=== PATIENT | female | born 1940 | race Hispanic/Latino ===

== ENCOUNTER 2020-11-29 09:24 | Observation (INO) | payer MEDICARE, OTHER ==
[~2020-11-29] VITALS: Ht 157.5 cm; Wt 61.2 kg
[2020-11-29] VITALS (7 sets, daily range): BP systolic 148–185; BP diastolic 60–82
[2020-11-29 09:56] LABS: BASOPHILS % (AUTO) 0.7 % (0.0-5.0); EOSINOPHILS % (AUTO) 1.1 % (0.0-8.0); HEMATOCRIT 37.7 % (36-48); LYMPHOCYTES % (AUTO) 7.9 % (21.0-51.0); MEAN CORPUSCULAR HEMOGLOBIN 28.6 pg (27.0-33.0); MEAN CORPUSCULAR HGB CONC 31.6 g/dL (32.0-36.0); MEAN CORPUSCULAR VOLUME 90.6 fL (79-99); MONOCYTES % (AUTO) 2.8 % (3.0-13.0); NEUTROPHILS % (AUTO) 83.3 % (40.0-77.0); NUCLEATED RED BLOOD CELLS 0.5 % (0.0-0.19); PLATELET COUNT (AUTO) 401 K/uL (130-400); RED BLOOD CELL COUNT(AUTO) 4.16 MIL/uL (4.00-5.50); RED CELL DISTRIBUTION WIDTH 17.8 % (11.0-15.5); WHITE BLOOD COUNT (AUTO) 25.6 K/uL (4.8-10.8)
[2020-11-29 10:00] LABS: CREATININE 1.6 mg/dL (0.5-1.5)
[2020-11-29 10:02] LABS: INR 1.05 (0.85-1.15); PROTHROMBIN TIME 11.4 SEC (9.6-11.6)
[2020-11-29 10:03] LABS: PARTIAL THROMBOPLASTIN TIME 31.1 SEC (26.3-35.5)
[2020-11-29 10:06] LABS: ALBUMIN 3.6 g/dL (3.5-5.0); BILIRUBIN,TOTAL 0.7 mg/dL (0.2-1.0)
[2020-11-29 10:11] LABS: B-TYPE NATRIURETIC PEPTIDE 113 pg/mL (0-100)
[2020-11-29 10:45] LABS: APPEARANCE,URINE Clear (CLEAR); BILIRUBIN,URINE Negative (NEGATIVE); COLOR,URINE Yellow (YELLOW); GLUCOSE, URINE (UA) Negative (NEGATIVE); KETONES,URINE Negative (NEGATIVE); LEUKOCYTE ESTERASE ,URINE Negative (NEGATIVE); NITRATE,URINE Negative (NEGATIVE); OCCULT BLOOD,URINE Negative (NEGATIVE); PROTEIN,URINE POS 2+ mg/dL (NEGATIVE); UROBILINOGEN,URINE 0.2 mg/dL (0.2-1.0)
[2020-11-29 10:56] LABS: AMYLASE 44 U/L (25-115); LIPASE 65 U/L (114-286)
[2020-11-29] MEDS ORDERED: 0.9%NACL 1000ML 1,000 ML IV SCH (11:00)
[2020-11-29] MEDS ORDERED: ONDANSETRON 4MG INJ IVP SCH (11:00)
[2020-11-29] MEDS ORDERED: MORPHINE 4 MG SYG IVP SCH (11:00)
[2020-11-29 11:20] LABS: BACTERIA,URINE Few /HPF (None Seen)
[2020-11-29 11:21] LABS: RBC,URINE 0-1 /HPF (0-1); WBC,URINE 0-1 /HPF (0-1)
[2020-11-29] MEDS ORDERED: ASPIRIN 81MG CHEW TAB PO SCH (12:30)
[2020-11-29] MEDS ORDERED: NITROGLYCERIN 1GM OINT 1 INCH/1GM TD SCH (12:30)
[2020-11-29] MEDS ORDERED: ENOXAPARIN SODIUM 60 MG/0.6 ML SQ SCH ×2 (12:30→13:30)
[2020-11-29] MEDS: CLOPIDOGREL 75MG TAB PO SCH (13:04)
[2020-11-29] MEDS ORDERED: ASPIRIN 81 MG EC TAB PO SCH (13:05)
[2020-11-29] MEDS ORDERED: AMLO5TAB5 PO (13:23)
[2020-11-29] MEDS ORDERED: ONDANSETRON 4MG INJ IVP PRN (13:30)
[2020-11-29] MEDS: DEXTROSE 5 % AND 0.9 % NACL 1,000 ML IV SCH (13:30)
[2020-11-29] MEDS ORDERED: DEXTROSE 50%-WATER 50 ML DISP.SYRIN IV PRN (13:30)
[2020-11-29] MEDS ORDERED: MORPHINE 2 MG SYG IVP PRN (13:30)
[2020-11-29] MEDS ORDERED: ACETAMINOPHEN 325 MG TAB PO PRN (13:30)
[2020-11-29] MEDS ORDERED: GLUCAGON 1MG KIT 1 MG ML IM PRN (13:30)
[2020-11-29] MEDS ORDERED: ANAG1CAP3 PO (14:59)
[2020-11-29] MEDS ORDERED: LEVO112T7 PO (14:59)
[2020-11-29] MEDS ORDERED: VITA1TAB22 PO (14:59)
[2020-11-29] MEDS ORDERED: TELM80TA10 PO (14:59)
[2020-11-29] MEDS ORDERED: SUCR1ORA15 PO (14:59)
[2020-11-29] MEDS ORDERED: ALLO100T PO (14:59)
[2020-11-29] MEDS ORDERED: RALO60TA13 PO (14:59)
[2020-11-29] MEDS: INSULIN R PO SS1 SQ SCH ×2 (16:30→20:42)
[2020-11-29] MEDS ORDERED: NON-FORMULARY MEDICATION 1 EACH (Sucralfate 1 GM) PO SCH (18:00)
[2020-11-29] MEDS ORDERED: MAGNESIUM HYDROXIDE 30 ML/UDCUP PO SCH (20:00)
[2020-11-29] MEDS: ZOSYN 3.375GM+NS 50ML 50 ML IV SCH (20:41)
[2020-11-29] MEDS: Telmisartan 80 MG PO SCH (20:41)
[2020-11-29] MEDS: SUCRALFATE 1 GM TABLET PO SCH (20:41)
[2020-11-30] VITALS (7 sets, daily range): BP systolic 103–156; BP diastolic 58–87
[2020-11-30] MEDS: DEXTROSE 5 % AND 0.9 % NACL 1,000 ML IV SCH ×2 (02:50→17:19)
[2020-11-30] MEDS: LEVOTHYROXINE 112 MCG TABLET PO SCH ×2 (05:32→05:49)
[2020-11-30] MEDS: SUCRALFATE 1 GM TABLET PO SCH ×4 (05:33→20:39)
[2020-11-30] MEDS: INSULIN R PO SS1 SQ SCH ×4 (05:49→20:39)
[2020-11-30] MEDS ORDERED: VITAMIN B COMPLEX PO SCH (09:00)
[2020-11-30] MEDS: VITAMIN B COMPLEX 1 CAPSULE PO SCH (09:00)
[2020-11-30] MEDS: CLOPIDOGREL 75MG TAB PO SCH (09:00)
[2020-11-30] MEDS: ENOXAPARIN SODIUM 60 MG/0.6 ML SQ SCH (09:00)
[2020-11-30] MEDS: ANAGRELIDE HCL 1 MG PO SCH ×2 (09:00→12:00)
[2020-11-30] MEDS: ALLOPURINOL 100 MG TABLET PO SCH (09:00)
[2020-11-30] MEDS ORDERED: ANAGRELIDE HCL 1 MG PO SCH (09:00)
[2020-11-30] MEDS: ASPIRIN 81 MG EC TAB PO SCH (09:00)
[2020-11-30] MEDS: AMLODIPINE 5 MG TAB PO SCH (09:23)
[2020-11-30] MEDS: ZOSYN 3.375GM+NS 50ML 50 ML IV SCH ×2 (09:24→20:36)
[2020-11-30] MEDS ORDERED: REGADENOSON 0.4 MG/5 ML PF SYG IVP SCH (10:00)
[2020-11-30] MEDS ORDERED: RALOXIFENE HCL 60 MG TABLET PO SCH (12:00)
[2020-11-30 14:23] LABS: CHOLESTEROL 150 mg/dL (<200); HDL CHOLESTEROL 36 mg/dL (35-85); LDL DIRECT 68 mg/dL (0-99); TRIGLYCERIDES 181 mg/dL (30-200)
[2020-11-30] MEDS: Telmisartan 80 MG PO SCH (21:00)
[2020-12-01 03:33] VITALS: BP 169/74
[2020-12-01 05:15] LABS: HEMATOCRIT 32.3 % (36-48); MEAN CORPUSCULAR HEMOGLOBIN 28.5 pg (27.0-33.0); MEAN CORPUSCULAR HGB CONC 30.3 g/dL (32.0-36.0); MEAN CORPUSCULAR VOLUME 93.9 fL (79-99); NUCLEATED RED BLOOD CELLS 0.8 % (0.0-0.19); PLATELET COUNT (AUTO) 305 K/uL (130-400); RED BLOOD CELL COUNT(AUTO) 3.44 MIL/uL (4.00-5.50); WHITE BLOOD COUNT (AUTO) 18.8 K/uL (4.8-10.8)
[2020-12-01 05:37] LABS: BILIRUBIN,TOTAL 0.7 mg/dL (0.2-1.0); CREATININE 1.8 mg/dL (0.5-1.5); POTASSIUM 4.5 mmol/L (3.5-5.1); TOTAL PROTEIN, SERUM 5.7 g/dL (6.0-8.3)
[2020-12-01] MEDS: LEVOTHYROXINE 112 MCG TABLET PO SCH (06:12)
[2020-12-01] MEDS: INSULIN R PO SS1 SQ SCH (06:35)
[2020-12-01] MEDS: ASPIRIN 81 MG EC TAB PO SCH (08:00)
[2020-12-01] MEDS: VITAMIN B COMPLEX 1 CAPSULE PO SCH (08:01)
[2020-12-01] MEDS: SUCRALFATE 1 GM TABLET PO SCH (08:02)
[2020-12-01] MEDS: ALLOPURINOL 100 MG TABLET PO SCH (08:08)
[2020-12-01] MEDS: AMLODIPINE 5 MG TAB PO SCH (08:08)
[2020-12-01 08:09] VITALS: BP 168/78
[2020-12-01] MEDS: ZOSYN 3.375GM+NS 50ML 50 ML IV SCH (08:14)
[2020-12-01] MEDS: ENOXAPARIN SODIUM 60 MG/0.6 ML SQ SCH (08:14)
[2020-12-01] MEDS: CLOPIDOGREL 75MG TAB PO SCH (08:14)
== END 2020-12-01 10:48 | disposition home or self-care (01) ==
LOC: EDH 09:24 → EDHIP 12:25 → 3CH 14:29 → 3AH 11-30 13:04
PROVIDERS: ADMIT Internal Medicine; ATTEND Internal Medicine
DX: R07.89 Other chest pain (principal); R10.13 Epigastric pain; I12.9 Hypertensive chronic kidney disease with stage 1 through stage 4 chronic kidney disease, or unspecified chronic kidney disease; N18.4 Chronic kidney disease, stage 4 (severe); D72.829 Elevated white blood cell count, unspecified; I20.9 Angina pectoris, unspecified; E86.0 Dehydration; E78.5 Hyperlipidemia, unspecified; K21.9 Gastro-esophageal reflux disease without esophagitis; E78.00 Pure hypercholesterolemia, unspecified; I99.8 Other disorder of circulatory system; Z90.49 Acquired absence of other specified parts of digestive tract; Z79.899 Other long term (current) drug therapy; Z98.890 Other specified postprocedural states; Z79.82 Long term (current) use of aspirin
CPT/HCPCS: 36415 ×3; 71045; 74176; 78452; 80053 ×2; 80061; 81001; 82150; 82550; 82948 ×3; 83605; 83690; 83880; 84145; 84484; 85025; 85027; 85610; 85730; 93005; 93017; 96361 ×2; 96365; 96366; 99285; A9500 ×2; G0378 ×44; J1650; J2543 ×2; J2785; J7030; 96374; J2270; J2405

== ENCOUNTER 2024-09-14 10:41 | Observation (INO) | payer MEDICARE ==
[~2024-09-14] VITALS: Ht 154.9 cm; Wt 53.1 kg
[~2024-09-14 10:41] MED LIST: ALLO100T PO; AMLO5TAB6 PO; ANAG1CAP11 PO; LEVO112T7 PO; RALO60TA13 PO; SUCR1ORA15 PO; TELM80TA10 PO; VITA-427 PO
[2024-09-14 11:26] LABS: CREATININE 2.6 mg/dL (0.5-1.0); GLOMERULAR FILTR. RATE CALC 18.0 mL/min (>90); GLUCOSE,RANDOM 94.0 mg/dL (70-105); SODIUM SERUM 138.0 mmol/L (136-145); UREA NITROGEN, BLOOD 67.0 mg/dL (7-18)
[2024-09-14 11:48] LABS: IMMATURE GRANULOCYTE ABSOLUTE 1.36 K/uL (0-1); NUCLEATED RED BLOOD CELLS 0.1 % (0.0-0.19); PLATELET COUNT (AUTO) 441 K/uL (130-400); RED BLOOD CELL COUNT(AUTO) 2.30 MIL/uL (4.00-5.50); RED CELL DISTRIBUTION WIDTH 21.3 % (11.0-15.5)
[2024-09-14 11:54] LABS: WHITE BLOOD COUNT (AUTO) 41.0 K/uL (4.8-10.8)
[2024-09-14 12:20] LABS: BAND NEUTROPHILS % (MANUAL) 2 % (0-2); LYMPHOCYTES % (MANUAL) 4 % (22-44); MONOCYTES % (MANUAL) 1 % (2-9); SEGMENTED NEUTROPHILS % 93 % (40-70)
[2024-09-14 12:21] LABS: MAN.DIFF COMMENT-IMPRESSION MANUAL DIFFERENTIAL; PLATELET MORPHOLOGY COMMENT SLIGHT INCREASED
--- NOTE | 2024-09-14 12:24 | ERN ---
General Chief Complaint: Anemia Stated Complaint: WEAKNESS, LOW H/H Time Seen by MD: 10:43 Source: patient History of Present Illness Initial Comments Patient is a an 84-year-old female coming in due to low hemoglobin. Per patient he was sent in by his PCP because of an abnormality found her lab. Patient states he does has a history of anemia and repeatedly requires transfusions. Allergies: Coded Allergies: Sulfa (Sulfonamide Antibiotics) (Unverified Allergy, Unknown, 11/29/20) Home Meds Reported Medications Sucralfate (Sucralfate) 1 Gm/10 Ml Oral.susp, 1 GM PO BEFORE MEALS, ML 11/29/20 Vitamin B Complex (Vitamin B Complex) 1 Each Tablet, 1 EACH PO AM, TAB 11/29/20 Telmisartan (Telmisartan) 80 Mg Tablet, 80 MG PO HS, TAB 11/29/20 Allopurinol (Allopurinol) 100 Mg Tablet, 150 MG PO AM, TAB 11/29/20 Raloxifene HCl (Raloxifene HCl) 60 Mg Tablet, 60 MG PO NOON, TAB 11/29/20 Anagrelide HCl (Anagrelide HCl) 1 Mg Capsule, 1 MG PO AMNOON, CAP 11/29/20 Levothyroxine Sodium (Levothyroxine Sodium) 112 Mcg Tablet, 112 MCG PO AM, TAB 11/29/20 Amlodipine Besylate (Norvasc) 5 Mg Tablet, 5 MG PO DAILY, TAB 11/29/20 Past Medical History Past Medical History: Anemia, GERD, Hypertension, Renal Failure, Other Medical History Other: THYROID, HIGH PLT Past Surgical History: Cholecystectomy Social History Social History: Negative, Lives with family ROS Dictation CONSTITUTIONAL: No chills, no fever, weakness, no diaphoresis, no malaise. HEAD/FACE: No signs of trauma. EENT: No eye pain, no blurred vision, no tearing, no double vision, no ear pain, no ear discharge, no nose pain, no nasal congestion, no throat pain, no throat swelling, no mouth pain. RESPIRATORY: No cough, no orthopnea, no SOB, no stridor, no wheezing. CARDIOVASCULAR: No chest pain, no edema, no palpitations, no syncope. GASTROINTESTINAL/ABDOMINAL: No abdominal pain, no constipation, no diarrhea, no nausea, no vomiting. GENITOURINARY: No abnormal discharge, no dysuria, no frequent urination, no hematuria. No complaints of pain in the genitals. MUSCULOSKELETAL: No back pain, no gout, no joint pain, no joint swelling, no muscle pain, no muscle stiffness, no neck pain. INTEGUMENTARY: No change in color, no change in hair/nails, no dryness, no lesion, no lumps, no rash. NEUROLOGICAL/PSYCH: No anxiety, not depressed, no emotional problem, no headache, no numbness, no pre-existing deficit, no history of seizures, no tremors, no weakness. HEMATOLOGIC/LYMPHATIC: Not anemic, no history of blood clots, no apparent bleeding, no bruising, glands not swollen. All Systems Negative, Except as Noted. Physical Exam Physical Exam Dictation VITAL SIGNS: Reviewed. GENERAL APPEARANCE: Alert, oriented x3, no acute distress, obese. HEAD AND FACE: Non-traumatic. EYES: PERRL, pink conjunctivas, eyelid no trauma, anterior chamber clear. EARS: Pinnas intact and no signs of trauma or erythema. Ear canals clear and no discharge. TMs no erythema. NOSE: No discharge, no bleeding. OROPHARYNX: Mouth normal, teeth no caries, tongue pink. Pharynx clear, no erythema. Tonsils no exudates, no abscesses noted. Mucous membrane moist. NECK: Supple, non-tender, no thyromegaly, no masses, no JVD, no bruits. BREAST: Deferred. CHEST: No tenderness, no crepitus, no paradoxical movement, no retractions. LUNGS: Clear, well-ventilated, symmetric, no rales, no wheezing, no rhonchi, no stridor, good breath sounds bilaterally. HEART: Regular rate, regular rhythm, no murmur, no gallops. VASCULAR: No peripheral edema. ABDOMEN: Soft, positive bowel sounds, nondistended, no guarding, nontender, no rebound, no masses no hepatomegaly, no splenomegaly, no Aguero's sign, no hernias. RECTAL: Deferred. GENITAL: Deferred. NEUROLOGICAL: Normal speech, gross motor function intact, gross sensory function intact. MUSCULOSKELETAL: Neck nontender, full range of motion, back nontender, full range of motion. EXTREMITIES: Nontender, full range of motion. SKIN: Color pink, dry, no turgor, no rash, no lacerations, no abrasions, no contusions. LYMPHATICS: Deferred. Results Laboratory and Microbiology Lab and Micro Result Laboratory Tests Test 09/14/24 10:58 09/14/24 11:38 White Blood Count 41.0 K/uL (4.8-10.8) *H Red Blood Count 2.30 MIL/uL (4.00-5.50) L Hemoglobin 6.9 g/dL (12.0-16.0) *L Hematocrit 22.2 % (36-48) L Mean Corpuscular Volume 96.5 fL (79-99) Mean Corpuscular Hemoglobin 30.0 pg (27.0-33.0) Mean Corpuscular Hemoglobin Concent 31.1 g/dL (32.0-36.0) L Red Cell Distribution Width 21.3 % (11.0-15.5) H Platelet Count 441 K/uL (130-400) H Mean Platelet Volume 11.5 fL (7.5-10.5) H Immature Granulocyte % (Auto) 3.3 % (0-1) H Neutrophils (%) (Auto) 89.8 % (40.0-77.0) H Lymphocytes (%) (Auto) 4.3 % (21.0-51.0) L Monocytes (%) (Auto) 1.1 % (3.0-13.0) L Eosinophils (%) (Auto) 1.1 % (0.0-8.0) Basophils (%) (Auto) 0.4 % (0.0-5.0) Neutrophils # (Auto) 36.8 K/uL (1.8-7.7) H Lymphocytes # (Auto) 1.8 K/uL (1.0-4.8) Monocytes # (Auto) 0.5 K/uL (0.1-1.0) Eosinophils # (Auto) 0.47 K/uL (0.00-0.70) Basophils # (Auto) 0.17 K/uL (0.00-0.20) Absolute Immature Granulocyte (auto 1.36 K/uL (0-1) H Segmented Neutrophils % 93 % (40-70) H Band Neutrophils % 2 % (0-2) Lymphocytes % (Manual) 4 % (22-44) L Monocytes % (Manual) 1 % (2-9) L Nucleated Red Blood Cells 0.1 % (0.0-0.19) Differential Comment MANUAL DIFFERENTIAL White Cell Morphology Comment Platelet Morphology Comment SLIGHT INCREASED Red Blood Cell Morphology ANISO 1+ Sodium Level 138 mmol/L (136-145) Potassium Level 5.0 mmol/L (3.5-5.1) Chloride Level 103 mmol/L (101-111) Carbon Dioxide Level 22 mmol/L (21-32) Blood Urea Nitrogen 67 mg/dL (7-18) H Creatinine 2.6 mg/dL (0.5-1.0) H Glomerular Filtration Rate Calc 18 mL/min (>90) Random Glucose 94 mg/dL (70-105) Total Calcium 8.6 mg/dL (8.5-10.1) Stool Occult Blood POSITIVE (NEGATIVE) H Labs Reviewed?: Yes MDM MDM: Differential diagnosis: Anemia, anemia requiring blood transfusion, history of anemia, Rationale: Tests considered and ordered secondary to shared decision making include: Previous outside records reviewed: Old ER visits. Risk of complication and/or morbidity or mortality of patient management: None Medications-Per medication reconciliation Need for hospitalization: Patient does not meet criteria for hospitalization. Need for emergency major/minor surgery: No There are no social concerns with this patient. Prescription drug management Prescriptions will include symptomatic care Patient's prior external medical records from other ER visits were reviewed by me as indicated. Prior testing and results from previous visits were reviewed. Prior tests were taken into account with medical decision making and resource utilization, independent historian/historians were used to obtain complete medical history. I independently interpreted the test that were performed, results were reviewed by me and considered findings on radiology if ordered. Medical management and examination interpretation discussions were had by me with other qualified healthcare professionals as indicated for the patient's care. Patient will be admitted under the care of Dr Rios. ED Course Orders Procedure Category Date Status Time Cbc With Differential LAB 09/14/24 Complete 10:44 Basic Metabolic Panel LAB 09/14/24 Complete 10:44 Type And Screen BBK 09/14/24 In Process 10:44 Occult Blood Stool LAB 09/14/24 Complete Single Only 10:44 Manual Differential LAB 09/14/24 Complete 10:58 Pathology Smear Review LAB 09/14/24 In Process 12:37 Rbc-No Active Bleeding BBK 09/14/24 In Process 13:30 Rbc-No Active Bleeding BBK 09/14/24 In Process 13:33 Vital Signs Date Time Temp Pulse Resp B/P (MAP) Pulse Ox O2 Delivery O2 Flow Rate FiO2 09/14/24 11:10 98.2 88 16 164/66 98 Room Air* 0 21 09/14/24 10:43 98.8 92 16 149/61 98 Room Air 0 DX & DISP Disposition: Inpatient Decision to Admit Time: 16:18 Departure Impression: Primary Impression: Anemia Additional Impression: Leukocytosis Condition: Stable Referrals: DUKE RIOS MD (PCP) NIKI WYNN MD Sep 14, 2024 12:24
--- NOTE | 2024-09-14 17:10 | NUR ---
CURRENT HOME MEDICATIONS RESTARTED PER DR RIOS
--- NOTE | 2024-09-14 17:18 | NUR ---
SPEAKING WITH PT PREVIOUSLY STARTED MEDICATION LIST NOT COMPLETE AND ADDITIONAL MEDS TO BE BROUGHT IN
[2024-09-14 17:55] VITALS: BP 175/70; PULSE 98; RESP 16; TEMP 98.2
--- NOTE | 2024-09-14 18:08 | CONS ---
Ms. Jimenez as an 84-year-old female with past medical history of essential hypertension, CKD, left-sided breast cancer, status post mastectomy and chemotherapy 15 years ago chronic anemia who was receiving blood transfusion from Dr. Gaines in his office, was sent to ER by her primary care physician because of low blood counts. She admits that she has lost weight recently. She has early satiety. Denies any fever, chills. Denies any bleeding or bruising. Patient admits that she has been fatigued lately. Denies any blood loss in the stool. She states that she has been told that she has anemia of chronic kidney disease. Denies any melena, hematochezia. In the emergency room, her hemoglobin was 6 g. Patient had stool occult blood positive. She is admitted under hospitalist service, we have been asked to consult for anemia. Past medical history: As above. Past surgical history: Status post left mastectomy. Status post cholecystectomy. Status post hysterectomy. Allergies: Patient is allergic to sulfa antibiotics. Social history: She does not smoke or drink. Family history: Reviewed and noncontributory. Medications: Patient states that she has been on levothyroxine and blood pressure medicine. Medicines list is being reconciled. Physical examination: Patient is lying in bed comfortably, she is not in any distress. HEENT. Mucous membranes are pale. Pupils are reactive to light, extraocular muscles are intact. Neck. Supple, no lymphadenopathy. Chest. Good air entry present bilaterally, no wheezing rales or crackles. Heart. S1-S2 regular, tachycardic, no gallop or murmur. Abdomen. Soft, nondistended, nontender, bowel sounds are present. Spleen is palpable in the left upper quadrant. She has reducible umbilical hernia present. Neurological exam. Patient is alert and oriented x3, no focal neurological deficit. Labs: CBC, chemistry was reviewed. Impression plan: 1. Symptomatic anemia. 2. Leukocytosis with left shift, blasts seen on my personal peripheral blood smear review. 3. Splenomegaly. 4. CKD stage 4. 5. Essential hypertension. 6. Hypothyroidism. 7. History of breast cancer. From the review of my smear, I have seen dysplastic and left-shifted myeloid. In addition, very immature blasts looking cells present. 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 Patient needs anemia workup. I have added labs to the ER sample. We will rule out iron-deficiency, B12/folic acid deficiency, hemolysis. If the above workup is negative, patient will be needing bone marrow biopsy which can be done after the weekend. I will also perform ultrasound of abdomen to assess the size of the spleen. Patient received 1 unit of PRBC in the ER, will be receiving another unit now. I would like to thank Dr. Raya to allow us to participate in this patient's care. Please do not hesitate to contact us if he should have any questions. Patient History: Asthma SON, Onset:Childhood Carcinomas MOTHER (BREAST CA) Completed stroke MOTHER, Onset:60 years & older Diabetes mellitus MOTHER BROTHER BROTHER SISTER SISTER SISTER SISTER DAUGHTER SON Hypertension MOTHER DAUGHTER Vitals/Labs Vital Signs Date Time Temp Pulse Resp B/P (MAP) Pulse Ox O2 Delivery O2 Flow Rate FiO2 09/14/24 17:26 98.2 100 16 157/70 98 Room Air* 0 21 Laboratory Tests 09/14/24 10:58 Allergies: Coded Allergies: Sulfa (Sulfonamide Antibiotics) (Unverified Allergy, Unknown, 11/29/20) Medications Current Medications Amlodipine Besylate 5 mg DAILY PO; Start 09/15/24 at 09:00; Stop 10/15/24 at 08:59 Levothyroxine Sodium 112 mcg AM PO; Start 09/15/24 at 09:00; Stop 10/15/24 at 08:59 JODI CHOI MD Sep 14, 2024 18:08
[2024-09-14 18:26] LABS: % IRON SATURATION 29.7 % (22-44); IRON, SERUM 28.0 mcg/dL (50-170)
[2024-09-14] MEDS ORDERED: FOLI0.8T22 PO (18:35)
[2024-09-14] MEDS ORDERED: TRAM-543 PO (18:36)
[2024-09-14] MEDS ORDERED: LEVO112C5 PO (18:44)
[2024-09-14] MEDS ORDERED: ANAG1CAP11 PO (18:44)
[2024-09-14] MEDS ORDERED: ACET-2743 PO (18:44)
[2024-09-14] MEDS ORDERED: SODI650T PO (18:44)
[2024-09-14] MEDS ORDERED: ALLO300T2 PO (18:44)
[2024-09-14 18:47] VITALS: O2SAT 97
[2024-09-14 18:51] LABS: LACTATE DEHYDROGENASE 407 U/L (81-234)
[2024-09-14 20:00] VITALS: BP 169/79; PULSE 103; RESP 18; TEMP 98.8; O2SAT 95
--- NOTE | 2024-09-14 20:00 | HP ---
HISTORY AND PHYSICAL NOTE DATE OF CONSULTATION: 09/14/24 HISTORY OF PRESENT ILLNESS: Patient admits that she has been fatigued lately. Denies any blood loss in the stool. She states that she has been told that she has anemia of chronic kidney disease. Denies any melena, hematochezia. In the emergency room, her hemoglobin was 6 g. Patient had stool occult blood positive. She is admitted under hospitalist service, we have been asked to consult for anemia. Past medical history: As above. Past surgical history: Status post left mastectomy. Status post cholecystectomy. Status post hysterectomy. Allergies: Patient is allergic to sulfa antibiotics. Social history: She does not smoke or drink. Family history: Reviewed and noncontributory. Medications: Patient states that she has been on levothyroxine and blood pressure medicine. Medicines list is being reconciled. ALLERGIES: Coded Allergies: Sulfa (Sulfonamide Antibiotics) (Unverified Allergy, Unknown, 11/29/20) HOME MEDS: Reported Medications Acetaminophen (Tylenol Extra Strength) 500 Mg Tablet, 2 TAB PO AT 1700 PRN for pain or fever for 3 Days, #30 TAB 0 Refills 09/14/24 Levothyroxine Sodium (Levothyroxine) 112 Mcg Capsule, 112 MCG PO 0600, CAP 09/14/24 Allopurinol (Allopurinol) 300 Mg Tablet, 1 TAB PO DAILY for 30 Days, #30 TAB 0 Refills 09/14/24 Anagrelide HCl (Anagrelide HCl) 1 Mg Capsule, 1 CAP PO BID for 30 Days, #60 CAP 0 Refills EVERY 12 HOURS 09/14/24 Sodium Bicarbonate (Sodium Bicarbonate) 650 Mg Tablet, 1 TAB PO TID for indigestion for 30 Days, #60 TAB 0 Refills 09/14/24 Tramadol HCl/Acetaminophen (Tramadol-Acetaminophn 37.5-325) 37.5 Mg-325 Mg Tablet, 1 TAB PO BID for PAIN 4 TO 6 for 2 Days, #12 TAB 0 Refills 09/14/24 Folic Acid/Vitamin B Comp W-C (Angelica-Tab Tablet) 0.8 Mg Tablet, 1 TAB PO DAILY for 30 Days, #30 TAB 0 Refills 09/14/24 Levothyroxine Sodium (Levothyroxine Sodium) 112 Mcg Tablet, 112 MCG PO AM, TAB 11/29/20 Amlodipine Besylate (Norvasc) 5 Mg Tablet, 5 MG PO BID, TAB 11/29/20 Discontinued Reported Medications Sucralfate (Sucralfate) 1 Gm/10 Ml Oral.susp, 1 GM PO BEFORE MEALS, ML 11/29/20 Vitamin B Complex (Vitamin B Complex) 1 Each Tablet, 1 EACH PO AM, TAB 11/29/20 Telmisartan (Telmisartan) 80 Mg Tablet, 80 MG PO HS, TAB 11/29/20 Allopurinol (Allopurinol) 100 Mg Tablet, 150 MG PO AM, TAB 11/29/20 Raloxifene HCl (Raloxifene HCl) 60 Mg Tablet, 60 MG PO NOON, TAB 11/29/20 Anagrelide HCl (Anagrelide HCl) 1 Mg Capsule, 1 MG PO AMNOON, CAP 11/29/20 INPATIENT MEDS: Current Medications Medications Dose Ordered Sig/Mathew Start Time Stop Time Status Last Admin Amlodipine Besylate 5 mg DAILY 09/15/24 09:00 10/15/24 08:59 Acetaminophen 1,000 mg DAILY17 PRN 09/14/24 19:30 10/14/24 19:29 Sodium Bicarbonate 650 mg TID 09/14/24 21:00 10/14/24 20:59 Tramadol/ Acetaminophen 1 tab BID 09/14/24 21:00 09/19/24 20:59 Home Med Anagrelide HCl 1MG CAP BID 09/14/24 21:00 10/14/24 20:59 Vitamin B Complex/ Vit C/Folic Acid 1 cap DAILY 09/15/24 09:00 10/15/24 08:59 Levothyroxine Sodium 112 mcg SYN 09/15/24 06:30 10/15/24 06:29 Allopurinol 50 mg QMOTH 09/16/24 09:00 10/16/24 08:59 VITAL SIGNS Vital Signs Date Time Temp Pulse Resp B/P (MAP) Pulse Ox O2 Delivery O2 Flow Rate FiO2 09/14/24 18:47 97 Room Air* 0 21 09/14/24 17:26 98.2 100 16 157/70 98 Room Air* 0 21 09/14/24 11:10 98.2 88 16 164/66 98 Room Air* 0 09/14/24 10:43 98.8 92 16 149/61 98 Room Air 0 PHYSICAL EXAM Physical examination: Patient is lying in bed comfortably, she is not in any distress. HEENT. Mucous membranes are pale. Pupils are reactive to light, extraocular muscles are intact. Neck. Supple, no lymphadenopathy. Chest. Good air entry present bilaterally, no wheezing rales or crackles. Heart. S1-S2 regular, tachycardic, no gallop or murmur. Abdomen. Soft, nondistended, nontender, bowel sounds are present. Spleen is palpable in the left upper quadrant. She has reducible umbilical hernia present. Neurological exam. Patient is alert and oriented x3, no focal neurological deficit. LABORATORY RESULTS Laboratory Tests 09/14/24 10:57: Iron Level 28, Total Iron Binding Capacity 94, Percent Iron Saturation 29.7, Lactate Dehydrogenase 407, Vitamin B12 Level 2571, Folic Acid (LAB) > 20.00 09/14/24 10:58: White Blood Count 41.0, Red Blood Count 2.30, Hemoglobin 6.9, Hematocrit 22.2, Mean Corpuscular Volume 96.5, Mean Corpuscular Hemoglobin 30.0, Mean Corpuscular Hemoglobin Concent 31.1, Red Cell Distribution Width 21.3, Platelet Count 441, Mean Platelet Volume 11.5, Immature Granulocyte % (Auto) 3.3, Neutrophils (%) (Auto) 89.8, Lymphocytes (%) (Auto) 4.3, Monocytes (%) (Auto) 1.1, Eosinophils (%) (Auto) 1.1, Basophils (%) (Auto) 0.4, Neutrophils # (Auto) 36.8, Lymphocytes # (Auto) 1.8, Monocytes # (Auto) 0.5, Eosinophils # (Auto) 0.47, Basophils # (Auto) 0.17, Absolute Immature Granulocyte (auto 1.36, Segmented Neutrophils % 93, Band Neutrophils % 2, Lymphocytes % (Manual) 4, Monocytes % (Manual) 1, Nucleated Red Blood Cells 0.1, Differential Comment MANUAL DIFFERENTIAL, White Cell Morphology Comment , Platelet Morphology Comment SLIGHT INCREASED, Red Blood Cell Morphology ANISO 1+, Reticulocyte Count (auto) 5.59729, Immature Reticulocyte Fraction 15.30, Sodium Level 138, Potassium Level 5.0, Chloride Level 103, Carbon Dioxide Level 22, Blood Urea Nitrogen 67, Creatinine 2.6, Glomerular Filtration Rate Calc 18, Random Glucose 94, Total Calcium 8.6 09/14/24 11:38: Stool Occult Blood POSITIVE PLAN Impression plan: 1. Symptomatic anemia. 2. Leukocytosis with left shift, blasts seen on my personal peripheral blood smear review. 3. Splenomegaly. 4. CKD stage 4. 5. Essential hypertension. 6. Hypothyroidism. 7. History of breast cancer. DUKE RIOS MD Sep 14, 2024 20:00
[2024-09-14] MEDS: ANAGRELIDE HCL 1 MG PO SCH (21:00)
[2024-09-14] MEDS: SODIUM BICARBONATE 650 MG TAB PO SCH (21:25)
[2024-09-15] VITALS: BP 146/62; PULSE 105; RESP 18; TEMP 99.1
[2024-09-15 04:00] VITALS: BP 167/80; PULSE 103; RESP 18; TEMP 99.1
[2024-09-15 04:44] LABS: IMMATURE GRANULOCYTE ABSOLUTE 1.33 K/uL (0-1); NUCLEATED RED BLOOD CELLS 0.3 % (0.0-0.19); PLATELET COUNT (AUTO) 333 K/uL (130-400); RED BLOOD CELL COUNT(AUTO) 3.31 MIL/uL (4.00-5.50); RED CELL DISTRIBUTION WIDTH 19.3 % (11.0-15.5)
[2024-09-15 05:00] LABS: WHITE BLOOD COUNT (AUTO) 38.1 K/uL (4.8-10.8)
[2024-09-15 05:17] LABS: ASPARTATE AMINOTRANSFERASE 16.0 U/L (10-37); CREATININE 2.6 mg/dL (0.5-1.0); GLOMERULAR FILTR. RATE CALC 18.0 mL/min (>90); GLUCOSE,RANDOM 95.0 mg/dL (70-105); SODIUM SERUM 142.0 mmol/L (136-145); TOTAL PROTEIN, SERUM 6.1 g/dL (6.0-8.3); UREA NITROGEN, BLOOD 65.0 mg/dL (7-18)
[2024-09-15] MEDS ORDERED: NON-FORMULARY MEDICATION 1 EACH (Levothyroxine Sodium (Levothyroxine) 112 MCG) PO SCH (06:00)
[2024-09-15 07:07] VITALS: O2SAT 98
[2024-09-15 07:55] VITALS: BP 152/64; PULSE 90; RESP 16; TEMP 98.3
[2024-09-15] MEDS: amLODIPine 5 MG TAB PO SCH (08:28)
[2024-09-15] MEDS: Vitamin B Complex/Vit C/Folic Acid PO SCH (08:28)
--- NOTE | 2024-09-15 09:48 | NUR ---
DC INSTRUCTION PROVIDED TO PATIENT . PATIENT VERBALIZED UNDERSTANDING
== END 2024-09-15 10:00 | disposition home or self-care (01) ==
LOC: EDH 10:41 → EDHIP 16:32 → 4AH 17:50
PROVIDERS: ADMIT Internal Medicine; ATTEND Internal Medicine
DX: D72.829 Elevated white blood cell count, unspecified (principal); D63.1 Anemia in chronic kidney disease; R16.1 Splenomegaly, not elsewhere classified; I12.9 Hypertensive chronic kidney disease with stage 1 through stage 4 chronic kidney disease, or unspecified chronic kidney disease; E11.22 Type 2 diabetes mellitus with diabetic chronic kidney disease; N18.4 Chronic kidney disease, stage 4 (severe); E03.9 Hypothyroidism, unspecified; K21.9 Gastro-esophageal reflux disease without esophagitis; Z90.49 Acquired absence of other specified parts of digestive tract; Z90.710 Acquired absence of both cervix and uterus; Z90.12 Acquired absence of left breast and nipple; Z85.3 Personal history of malignant neoplasm of breast; Z88.2 Allergy status to sulfonamides; Z79.899 Other long term (current) drug therapy
CPT/HCPCS: 36430; 99285; 83540; 83550; 83615; 80048; 85025 ×2; 85045; 86850; 86880; 86900; 86901; 86923; 83010; 82607; 82746; 82270; 36415 ×2; 80053; G0378 ×17; P9016 ×2